=== PATIENT | female | born 1950 | race Caucasian/White ===

== ENCOUNTER → 2018-08-31 10:09 | Outpatient (CLI) | payer OTHER ==
[2015-04-17 15:33] VITALS: BMI 34.4
[~2018-08-31 10:09] MED LIST: CELEXA20 MG PO; KLONOPIN0.5 MG PO; LIPITOR10 MG PO; MOBIC7.5 MG PO; OXYBUTYNIN CHLOR5 MG PO; PERCOCET 10/3251 TA1 PO; PROTONIX40 MG PO; SOMA350 MG PO; SYNTHROID125 MCG PO; SYNTHROID175 MCG PO; TOPIRAGEN50 MG PO; VOLTAREN100 GM TOPICAL; ZANAFLEX4 MG PO; ZANTAC150 MG; ZEBETA5 MG PO
--- NOTE | 2018-09-06 14:03 | EC ---
PATIENT:JIM BOB DATE OF SERVICE: 08/31/18 SEX: F MEDICAL RECORD: [id number] DATE OF : [birth year] [facility] AGE OF PATIENT: 67 ADMISSION DATE: 08/31/18 REFERRING PHYSICIAN: INTERPRETING PHYSICIAN: JOSE DAWN MD ECHOCARDIOGRAM REPORT ECHO CHARGES 4 ECHO COMPLETE Date: 08/31/18 CLINICAL DIAGNOSIS: SVT H/O HTN/PACEMAKER PLACEMENT ECHOCARDIOGRAPHIC MEASUREMENTS (adult normal given) AC root (d.<3.7cm) 2.9 cm LV Septum d (<1.2 cm> 1.1 cm Valve Excursion 1.8 cm LV Septum (systole) 1.6 cm Left Atria (s.<4.0cm> 4.1 cm LVPW d(<1.2cm) 1.2 cm RV (d.<2.3cm) 2.2 cm LVPW (sytole) 2.1 cm LV diastole(<5.6CM) 5.9 cm MV E-F(>70mm/sec) cm LV systole 3.5 cm LVOT Diameter 1.8 cm MV exc.(>10mm) cm Est.ejection fraction (50-75%) % DOPPLER: LVIT cm/sec A 96.0 cm/sec E 100 cm/sec LA cm/sec RVSP 27.0 mmHg LVOT 123 cm/sec AOP1/2T m/s Asc. Ao 157 cm/sec RVOT 79.0 cm/sec RA cm/sec PA 98.0 cm/sec AV Gradient Peak 9.9 mmHg AV Mean 5.2 mmHg AV Area 2.1 cm MV Gradient Peak 5.7 mmHg MV Mean 2.1 mmHg MV Area cm COMMENTS: OP - HC Oil Dispatcher: 1 LAISHA CARLOTA Merry Go Round Attendant: 3 Dr. Ram TAPE# PACS Pericardial Effusion Y DATE OF SERVICE: Adequate 2-D, color-flow and spectral Doppler, and M-mode. Borderline LVH. LV internal dimensions are normal. Wall motion is normal. EF is greater than or equal to 55%. Aortic valve is tricuspid. No evidence of stenosis by Doppler interrogation. Left atrium is at upper limits of normal to mildly dilated at 4.1 cm. Mitral valve shows no prolapse. Trace MR. Right-sided chambers are grossly normal. Mild TR. ECHOCARDIOGRAM REPORT [id number] JIM BOB TRANSINT:[id number] Voice Confirmation ID: [id number] DOCUMENT ID: [id number] JOSE DAWN MD at 1403 CC: [id number] DICTATION DATE: 09/04/18 1253 CHRONOGRAPH OPERATOR: 09/04/18 1309 DEP CLI 08/31/18 [place] [id number] [place] [id number]
== END | disposition home or self-care (01) ==
LOC: D.HCCARDIO 10:09
PROVIDERS: ATTEND Internal Medicine Interventional Cardiology
DX: I10 Essential (primary) hypertension (principal)

== ENCOUNTER → 2019-09-11 09:45 | Outpatient (CLI) | payer OTHER ==
[2015-04-17 15:33] VITALS: BMI 34.4
--- NOTE | ~2019-09-11 | EC ---
PATIENT:JIM BOB DATE OF SERVICE: 09/11/19 SEX: F MEDICAL RECORD: [id number] DATE OF : [birth year] LOCATION:[facility] AGE OF PATIENT: 68 ADMISSION DATE: 09/11/19 REFERRING PHYSICIAN: INTERPRETING PHYSICIAN: JOSE DAWN MD ECHOCARDIOGRAM REPORT ECHO CHARGES 4 ECHO COMPLETE Date: 09/11/19 CLINICAL DIAGNOSIS: MITRAL REGURG HX HTN/PACER ECHOCARDIOGRAPHIC MEASUREMENTS (adult normal given) AC root (d.<3.7cm) 3.2 cm LV Septum d (<1.2 cm> 1.3 cm Valve Excursion 1.8 cm LV Septum (systole) 1.5 cm Left Atria (s.<4.0cm> 4.0 cm LVPW d(<1.2cm) 1.3 cm RV (d.<2.3cm) 3.4 cm LVPW (sytole) 1.8 cm LV diastole(<5.6CM) 4.9 cm MV E-F(>70mm/sec) cm LV systole 3.0 cm LVOT Diameter 1.8 cm MV exc.(>10mm) 1.8 cm Est.ejection fraction (50-75%) % DOPPLER: LVIT cm/sec A 88.0 cm/sec E 57.0 cm/sec LA cm/sec RVSP 30 mmHg LVOT 116 cm/sec AOP1/2T m/s Asc. Ao 150 cm/sec RVOT 101 cm/sec RA cm/sec PA 122 cm/sec AV Gradient Peak 8.98 mmHg AV Mean 5.48 mmHg AV Area 1.8 cm MV Gradient Peak 5.40 mmHg MV Mean 2.27 mmHg MV Area cm COMMENTS: Congressional Aide: 2 RODRIGO MIRELES Chef Assistant: 3 Dr. Ram TAPE# PACS Pericardial Effusion N DATE OF SERVICE: Adequate 2D, color flow imaging, spectral Doppler, and M-Mode. LVH is present. LV internal dimension is normal. Wall motion is normal. EF is greater than or equal to 55%. Aortic valve is tricuspid. No evidence of stenosis by Doppler interrogation. Left atrium is normal at 4.0 cm. Mitral valve shows no prolapse. Mild MR. Right-sided chambers are grossly normal. Mild TR. ECHOCARDIOGRAM REPORT [id number] JIM BOB TRANSINT:[id number] Voice Confirmation ID: [id number] DOCUMENT ID: [id number] JOSE DAWN MD CC: [id number] DICTATION DATE: 09/13/19 1441 BLANKET WINDER OPERATOR: 09/13/19 1837 DEP CLI 09/11/19 [place] [id number] [place] [id number]
== END | disposition home or self-care (01) ==
LOC: D.HCCECHO 09:45
PROVIDERS: ATTEND Internal Medicine Interventional Cardiology
DX: I34.0 Nonrheumatic mitral (valve) insufficiency (principal)